=== PATIENT | female | born 1970 | race Two or more races ===

== ENCOUNTER 2016-12-19 11:28 | Emergency (ER) | payer BC ==
[2016-12-19] MEDS ORDERED: CELEBREX100 M1 PO (11:48)
[2016-12-19 12:49] LABS: PREGNANCY-SERUM NEGATIVE (NEGATIVE)
[2016-12-19 12:50] LABS: BASO % 0.3 % (0-2); EOSINOPHIL ABSOLUTE COUNT 0.1 tho/cmm (0.0-0.7); IMMATURE GRANULOCYTES ABSOLUTE 0.01 tho/cmm (0-0.03); IMMATURE GRANULOCYTES PERCENT 0.2 % (0-0.3); LYMPH % 37.3 % (20-45); LYMPH ABSOLUTE COUNT 2.2 tho/cmm (0.8-4.5); MCH (MEAN CORPUSCULAR HGB) 27.8 pg (28.0-32.0); MCHC MEAN CORPUSCULAR HGB CONC 33.3 % (32.0-36.0); MCV (MEAN CELL VOLUME) 83.3 fl (82.0-96.0); MEAN PLATELET VOLUME 10.1 cmc (9.4-12.4); MONO % 9.2 % (0-12); MONOCYTE ABSOLUTE COUNT 0.5 tho/cmm (0.0-1.2); PLATELET COUNT 236 tho/cmm (150-450); RED BLOOD COUNT 5.04 mil/cmm (4.00-5.20); RED CELL DISTRIBUTION WIDTH 12.9 % (12.4-16.4); WHITE BLOOD COUNT 5.8 tho/cmm (4.0-10.0)
[2016-12-19 12:53] LABS: ANION GAP 11 mmol/L (0-20); BLOOD UREA NITROGEN 13 mg/dl (6-24); CALCIUM 8.6 mg/dl (8.5-10.5); CARBON DIOXIDE-VENOUS 26 mmol/L (22-32); CHLORIDE 107 mmol/l (96-110); CREATININE 0.47 mg/dl (0.50-1.10); GLUCOSE 157 mg/dL (70-110); POTASSIUM 3.6 mmol/L (3.7-5.1); SODIUM 140 mmol/L (135-145); eGFR VALUE FOR BLACK >90 mL/Min
[2016-12-19] MEDS ORDERED: XIGDUO XR 5 MG1 EAC1 PO (13:01)
[2016-12-19] MEDS ORDERED: PERCOCET 5-3251 EACH PO (13:41)
== END 2016-12-19 13:59 ==
LOC: EDMED 11:28
PROVIDERS: Physician Assistant
DX: R51 Headache (principal); E11.9 Type 2 diabetes mellitus without complications
CPT/HCPCS: J1200; J1885; J2765; J7030